=== PATIENT | female | born 1940 | race Caucasian/White ===

== ENCOUNTER 2018-11-13 13:37 | Emergency (ER) | payer MEDICARE ==
[2018-11-13 14:03] VITALS: BP 140/66
--- NOTE | 2018-11-13 14:38 | UC ---
Respiratory Complaint HPI - HPI Summary HPI Summary: 77 y/o female presents to the urgent care c/o productive cough w/ chest congestion, sinus pressure, ROWELL, body aches for the past 8 days. Pt returned form [place] on 10/31 and she forgot to wear a mask in the plane and 3 days later she started w/ sinus congestion and yellowish discharge. She has been w/ fever on and off for the past 2 days. Temp Max: 102F yesterday. She has been taken Tylenol PO to alleviate symptoms. Last dose taken was around 1300pm today. She had mild wheezing last night. Pt denies dizziness, SOB, chest pain, abdominal pain, N/V/D - History of Current Complaint Chief Complaint: UCGeneralIllness Stated Complaint: CONJESTION/FEVER Time Seen by Provider: 11/13/18 14:25 Hx Obtained From: Patient ?: No Onset/Duration: Gradual Onset, Lasting Days - 9 days, Still Present, Worse Since - 2 days w/ fever and mild wheezing Timing: Intermittent Episodes Severity Initially: Mild Severity Currently: Moderate Pain Intensity: 5 - sore throat Character: Cough: Productive, Sputum Description: - yellowihs Alleviating Factors: OTC Meds Associated Signs And Symptoms: Positive: Fever, Chills, Wheezing - mild, URI, Nasal Congestion - yellowish, Sinus Discomfort - Risk Factors Pulmonary Embolism Risk Factors: Negative Cardiac Risk Factors: Negative Pseudomonas Risk Factors: Negative Tuberculosis Risk Factors: Negative - Allergies/Home Medications Allergies/Adverse Reactions: Allergies Allergy/AdvReac Type Severity Reaction Status Date / Time [facility] Allergy Intermediate Swelling Verified 11/13/18 14:03 fentanyl Allergy Intermediate Nausea And Verified 11/13/18 14:03 Vomiting lisinopril Allergy Intermediate Coughing Verified 11/13/18 14:03 codeine Allergy Mild Itching Verified 11/13/18 14:03 Home Medications: Home Medications Amitriptyline HCl 75 mg PO DAILY WITH MEAL 11/13/18 [History Confirmed 11/13/18] Biotin/Keratin [Biotin Plus Keratin Tablet] 1 each PO DAILY WITH MEAL 11/13/18 [ History Confirmed 11/13/18] Lactobacillus Acidophilus [Probiotic Acidophilus] 1 each PO DAILY WITH MEAL [History Confirmed 11/13/18] Losartan Potassium [Cozaar] 50 mg PO DAILY 11/13/18 [History Confirmed 11/13/18] Multivit-Min/Iron/Folic/Lutein [Centrum Silver Women Tablet] 1 mg PO DAILY WITH MEAL 11/13/18 [History Confirmed 11/13/18] Turmeric 400 mg PO DAILY WITH MEAL 11/13/18 [History Confirmed 11/13/18] hydroCHLOROthiazide [Hydrochlorothiazide] 12.5 mg PO DAILY WITH MEAL 11/13/18 [ History Confirmed 11/13/18] traZODone TAB* [Desyrel TAB*] 100 mg PO BEDTIME 11/13/18 [History Confirmed ] PMH/Surg Hx/FS Hx/Imm Hx Previously Healthy: Yes Endocrine History: Dyslipidemia Cardiovascular History: Hypertension Other GI/ History: chronic lower back, DDD - Surgical History Surgical History: Yes Surgery Procedure, Year, and Place: 2 hernia surgury,rt and lt bunionectomys, tubal ligation, cataracts, tonsils, lower back surgery 1999,rt [place] - Family History Known Family History: Positive: Hypertension - Social History Occupation: Retired Lives: With Family Alcohol Use: Weekly Alcohol Amount: one glass of wine Substance Use Type: Prescribed Substance Use Comment - Amount & Last Used: Oxycodone Smoking Status (MU): Never Smoked Tobacco - Immunization History Most Recent Influenza Vaccination: 06/04/10 Most Recent Tetanus Shot: 2005 Most Recent Pneumonia Vaccination: 1999 Review of Systems All Other Systems Reviewed And Are Negative: Yes Constitutional: Positive: Fever, Chills, Fatigue Skin: Positive: Negative Eyes: Positive: Negative ENT: Positive: Sore Throat, Nasal Discharge - yellowish, Sinus Congestion, Sinus Pain/Tenderness, Other - PND Respiratory: Positive: Cough - productive cough w/ yellowish phlegm, Other - mild wheezing Cardiovascular: Positive: Negative Gastrointestinal: Positive: Negative Genitourinary: Positive: Negative Motor: Positive: Negative Neurovascular: Positive: Negative Musculoskeletal: Positive: Negative Neurological: Positive: Headache Psychological: Positive: Negative Is Patient Immunocompromised?: No Physical Exam - Summary Physical Exam Summary: Vital Signs Reviewed: Yes General: well developed, well nourished female sitting in the examining table w/ o any apparent distress Eyes: Positive: Conjunctiva Clear - PERRLA, EOMI, fundi grossly normal ENT: Positive: Normal ENT inspection, Hearing grossly normal, Pharynx normal, Nasal congestion - edematous and erythematous nasal mucosa, Nasal drainage - yellowish drainage, TMs normal. Negative: Tonsillar swelling, Tonsillar exudate Neck: Positive: Supple, Nontender, No Lymphadenopathy Respiratory: no orthopnea or dyspnea. Able to speak in full sentences, no retractions or accessory muscle use, no tripod position, stridor, or head bobbing. Positive breath sounds bilaterally. diffuse scattered rhonchi and mild RT posterior upper lung w/ mild wheezing, no crackles or rales. Cardiovascular: Positive: RRR, No Murmur, Pulses Normal, Brisk Capillary Refill Abdomen Description: Positive: Nontender, No Organomegaly, Soft. Negative: CVA Tenderness (R), CVA Tenderness (L) Bowel Sounds: Positive: Present Musculoskeletal Exam: Normal Musculoskeletal: Positive: Strength Intact, ROM Intact, No Edema Neurological Exam: Normal Psychological Exam: Normal Skin Exam: Normal Triage Information Reviewed: Yes Vital Signs: Initial Vital Signs Temp 99.4 F 11/13/18 13:58 Pulse 104 11/13/18 13:58 Resp 20 11/13/18 13:58 BP 140/66 11/13/18 13:58 Pulse Ox 97 11/13/18 13:58 Respiratory Course/Dx - Course Course Of Treatment: 77 y/o female presents to the urgent care c/o productive cough w/ chest congestion, sinus pressure, ROWELL, body aches for the past 8 days. [place] returned form [place] on 10/31 and she forgot to wear a mask in the plane and 3 days later she started w/ sinus congestion and yellowish discharge. She has been w/ fever on and off for the past 2 days. Temp Max: 102F yesterday. She has been taken Tylenol PO to alleviate symptoms. Last dose taken was around 1300pm today. She had mild wheezing last night. Pt denies dizziness, SOB, chest pain, abdominal pain, N/V/D. Hx obtained. .PT is hemodynamically stable, w/ diffuse scattered rhonchi and mild RT posterior upper lung w/ mild wheezing, no crackles or rales on examination. O2Sat: 97%.. Chest X-ray ordered: impression: Hyperinflation consistent w/ COPD, no acute cardiopulmonary disease observed as per radiologist. Duoneb treatment ordered and given by nurse. Pt tolerated well medications and her lungs improved. Pt states feeling better. Pt will be Tx for Acute Bronchitis, Rx Doxycycline PO , Albuterol Inhaler and Tessalon tabs as directed below. Strongly advised to f/u with her PCP for further management. She may be developing COPD. She also has elevated BP today, advised to decrease salt in her diet and monitor BP, if it continues to be elevated to f/u with her PCP. Pt understood and agreed with D/C instructions and left the clinic hemodynamically stable. - Differential Dx/Diagnosis Differential Diagnosis/HQI/PQRI: Asthma, Bronchitis, Influenza, Lower Resp Infection, Sinusitis, Other - pneumonia, pharyngitis Provider Diagnosis: Acute bronchitis, Wheezing, Uncontrolled hypertension Discharge - Sign-Out/Discharge Documenting (check all that apply): Patient Departure - D/C home All imaging exams completed and their final reports reviewed: Yes - Discharge Plan Condition: Stable Disposition: HOME Prescriptions: Albuterol HFA INHALER* [Ventolin HFA Inhaler*] 1 - 2 puff INH Q6H PRN #1 mdi PRN Reason: Wheezing Benzonatate CAP* [Tessalon 100 MG CAP*] 100 mg PO TID PRN #21 cap PRN Reason: Cough DOXYcycline CAP(*) [DOXYcycline 100MG CAP(*)] 100 mg PO BID #20 cap Patient Education Materials: Acute Bronchitis (ED) Referrals: Rosalva Lockhart MD [Primary Care Provider] - 3 Days Additional Instructions: 1-Please take full course of antibiotic to avoid resistance. Take yogurt w/ probiotics or Culturelle to protect your GI system. Please take antibiotic 2hrs before or after you take your Multivitamins sicne it can cause delay in its absorption 2-Take Tessalon PO tabs as directed and use the albuterol inhaler w/ aerochamber to alleviate cough. Increase fluid intake, rest and eat well. 3- If symptoms do not improve or worsen or your develop SOB with fever and severe wheezing please go immediately to the ER further evaluation and treatment. 4- F/u with your PCP in 3 days if not improvement of symptoms for further management. 5-Your BP is elevated today. please decrease salt in your diet, monitor BP and if it continues to be elevated please f/u with your PCP for further management. - Billing Disposition and Condition Condition: STABLE Disposition: Home
[2018-11-13] MEDS ORDERED: Albuterol/Ipratropium NEB.SOL* Albuterol 2.5 MG/Ipratropium 0.5 MG 3 ML INH ONE (14:50)
== END 2018-11-13 16:03 | disposition home or self-care (01) ==
LOC: UCEAST 13:37
DX: J20.9 Acute bronchitis, unspecified (principal); R06.2 Wheezing; I10 Essential (primary) hypertension; E78.5 Hyperlipidemia, unspecified; G89.29 Other chronic pain; M54.5 Low back pain; M51.36 Other intervertebral disc degeneration, lumbar region; Z88.5 Allergy status to narcotic agent; Z88.8 Allergy status to other drugs, medicaments and biological substances
CPT/HCPCS: 71046; 87651; 99212; A9270-GY; G0463

== ENCOUNTER 2019-03-04 14:34 | Emergency (ER) | payer MEDICARE ==
--- NOTE | 2019-03-04 15:43 | UC ---
General HPI - HPI Summary HPI Summary: 78-year-old woman comes in with a chief complaint of injuries sustained during a fall last evening. She tripped and fell down several steps. She's struck her right cheondoism and also had an outstretched right arm and has right arm pain and struck her right knee and his right knee pain. Patient is not on blood thinners. She was nauseous for about 45 minutes after the fall but did not throw up. No change in vision. Of difficulty with speech. No weakness or numbness. At this time the patient has no headache. She does have some neck pain that is mostly on the sides. To about a 5 out of 10 it's worse with movement. She has hematoma on the anterior aspect of the right wrist. She has pain in the right shoulder and right humerus. She describes the right wrist pain is minimal. Her worst pain is at the right shoulder and right humerus which is worse with range of motion. Also her right knee has an abrasion on it and it swollen and it hurts to try to bend. She can bear weight. It does not feel unstable to exam. - History of Current Complaint Chief Complaint: UCTrauma Stated Complaint: R SHOULDER INJURY Time Seen by Provider: 03/04/19 15:17 Hx Last Menstrual Period: post Pain Intensity: 8 - Allergy/Home Medications Allergies/Adverse Reactions: Allergies Allergy/AdvReac Type Severity Reaction Status Date / Time am[facility] [[facility]] Allergy Intermediate Swelling Verified 03/04/19 15:03 fentanyl Allergy Intermediate Nausea And Verified 03/04/19 15:03 Vomiting lisinopril Allergy Intermediate Coughing Verified 03/04/19 15:03 codeine Allergy Mild Itching Verified 03/04/19 15:03 PMH/Surg Hx/FS Hx/Imm Hx Previously Healthy: Yes Cardiovascular History: Hypertension Respiratory History: Asthma GI/ History: Gastroesophageal Reflux - Surgical History Surgical History: Yes Surgery Procedure, Year, and Place: 2 hernia surgury,rt and lt bunionectomys, tubal ligation, cataracts, tonsils, lower back surgery 1999,rt [place] - Family History Known Family History: Positive: Hypertension - Social History Alcohol Use: Weekly Alcohol Amount: one glass of wine Substance Use Type: Prescribed Substance Use Comment - Amount & Last Used: Oxycodone Smoking Status (MU): Never Smoked Tobacco - Immunization History Most Recent Influenza Vaccination: 06/04/10 Most Recent Tetanus Shot: 2005 Most Recent Pneumonia Vaccination: 1999 Review of Systems All Other Systems Reviewed And Are Negative: Yes Constitutional: Positive: Negative Skin: Positive: Other - see hpi Eyes: Positive: Negative ENT: Positive: Negative Respiratory: Positive: Negative Cardiovascular: Positive: Negative Gastrointestinal: Positive: Nausea - see hpi Motor: Positive: Decreased ROM Neurovascular: Positive: Negative Musculoskeletal: Positive: Other: - see hpi Neurological: Positive: Negative Psychological: Positive: Negative Is Patient Immunocompromised?: No Physical Exam Triage Information Reviewed: Yes Appearance: Well-Appearing, Well-Nourished, Pain Distress - mild with rom Vital Signs: Initial Vital Signs Temp 98.3 F 03/04/19 14:55 Pulse 77 03/04/19 14:55 Resp 16 03/04/19 14:55 BP 143/58 03/04/19 14:55 Pulse Ox 96 03/04/19 14:55 Vital Signs Reviewed: Yes Eye Exam: Normal Eyes: Positive: Conjunctiva Clear, Other: - PERRLA EOMI and no photophobia ENT: Positive: TMs normal - No hemotympanum Neck: Positive: Supple, Other: - Mild tenderness to palpation in the posterior aspect of the lateral aspects minimal tenderness of the midline posterior spinous processes. Respiratory: Positive: Chest non-tender, Lungs clear, Normal breath sounds, No respiratory distress Musculoskeletal: Positive: Strength Intact, Other: - Tender to palpation of the right shoulder joint and down into the right humerus. The fingers hands wrists and elbows are nontender to palpation and have full range of motion and full strength. Bilateral shoulder extension and abduction is 90. The right knee is scattered effusion there is an abrasion on it. Limited range of motion secondary to the effusion. It's stable to exam. Neurological: Positive: Alert Psychological: Positive: Age Appropriate Behavior Skin: Positive: Other - 2 cm diameter abrasion on the right knee. There is a 4 cm diameter ecchymosis on the right anterior wrist. Course/Dx - Course Course Of Treatment: Instrument Repairer: Joanna Delgadillo S ([id number]) Dental Internship: LINDA (LINDA) Report Date: 03/04/2019 15:35:00 Report Status: Final Start of Report Content Patient Name: COLT DELACRUZ Medical Record#: [id number] Ordering Physician: Landon Waters MD Acct.#: [id number] : Age: 78 Sex: F Location: [facility] Exam Date: 03/04/19 1535 ADM Status: REG ER Order Information: SHOULDER RIGHT 2+ VWS Accession Number: [id number] CPT: 48835 Indication: Right shoulder injury. 4 views of the right shoulder demonstrates AC joint arthritis. No fracture is noted. IMPRESSION: AC joint arthritis with no evidence of fracture. <Electronically signed by Joanna Delgadillo MD in OV> 03/04/191634 Dictated By: Joanna Delgadillo MD Dictated Date/Time: 1633 Transcribed Date/Time: 03/04/191633 Copy to: CC:Rosalva Lockhart MD; Landon Waters MD Imaging - [facility] Imaging - [facility] [address] [place] [address] ph [phone]) ph [phone]) ph ([phone]) End of Report Content Instrument Repairer: Joanna Delgadillo S, ([id number]) Dental Internship: LINDA (NUANCE) Report Date: 03/04/2019 15:35:00 Report Status: Final Start of Report Content Patient Name: COLT DELACRUZ Medical Record#: [id number] Ordering Physician: Landon Waters MD Acct.#: [id number] : Age: 78 Sex: F Location: [facility] Exam Date: 03/04/19 1535 ADM Status: REG ER Order Information: KNEE RIGHT 4+ VWS Accession Number: [id number] CPT: 58809 Indication: Right ankle pain. 4 views of the right knee demonstrates no fracture. No joint effusion is noted. No other bone or joint abnormality is identified. IMPRESSION: No fracture of the right knee is noted. _ <Electronically signed by Joanna Delgadillo MD in OV> 03/04/191634 Dictated By: Joanna Delgadillo MD Dictated Date/Time: 03/04/191634 Transcribed Date/Time: 03/04/191634 Copy to: CC:Rosalva Lockhart MD; Landon Waters MD Imaging - [facility] Imaging - [facility] [address] [address] ph [phone]) ph ([phone]) ph ([phone]) End of Report Content Instrument Repairer: Joanna Delgadillo S, ([id number]) Dental Internship: LINDA, (NUANCE) Report Date: 03/04/2019 15:35:00 Report Status: Final Start of Report Content Patient Name: COLT DELACRUZ Medical Record#: [id number] Ordering Physician: Landon Waters MD Acct.#: [id number] : Age: 78 Sex: F Location: [facility] Exam Date: 03/04/191534 ADM Status: REG ER Order Information: HUMERUS RIGHT Accession Number: [id number] CPT: 40882 Indication: Right arm injury. 2 views of the right arm demonstrates no fracture. No other bone or joint abnormality is identified. IMPRESSION: No fracture of the right arm is noted. <Electronically signed by Joanna Delgadillo MD in OV> 03/04/191635 Dictated By: Joanna Delgadillo MD Dictated Date/Time: 03/04/191634 Transcribed Date/Time: 03/04/191634 Copy to: CC:Rosalva Lockhart MD; Landon Waters MD Imaging - [facility] Imaging [facility] [address], [place] [id number] [place] [address] [place] [address] ph [phone] ph ) ph ([phone]) End of Report Content Instrument Repairer: Joanna Delgadillo S, ([id number]) Dental Internship: LINDA, (NUANCE) Report Date: 03/04/2019 15:35:00 Report Status: Final Start of Report Content Patient Name: COLT DELACRUZ Medical Record#: [id number] Ordering Physician: Landon Waters MD Acct.#: [id number] : Age: 78 Sex: F Location: [facility] Exam Date: 03/04/19 1535 ADM Status: REG ER Order Information: SP CERVICAL 4+VWS Accession Number: [id number] CPT: 32615 Indication: Neck injury. 5 views of the cervical spine demonstrates kyphosis at C4-C5. Degenerative disc disease at C5-C6 and C6-C7 is noted. Spinal canal appears to be intact. Intervertebral foramen appears patent. 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 Degenerative disc disease at C4 -C5, C5-C6 and C6-C7. __ <Electronically signed by Joanna Delgadillo MD in OV> 03/04/191635 Dictated By: Joanna Delgadillo MD Dictated Date/Time: 03/04/191635 Transcribed Date/Time: 1635 Copy to: CC:Rosalva Lockhart MD; Landon Waters MD Imaging - [facility] Imaging - [facility] Imaging - [facility] [address] [address] ph [phone]) ph ([phone]) ph ([phone]) ===== End of Report Content I discussed the x-rays with the patient and her . At this time the plan is to continue her ibuprofen and acetaminophen as needed for pain. She can ice the right shoulder if needed and helpful and also the right knee if help full. Patient will follow-up with orthopedics for both of these injuries. Here today in clinic we do not have head CT. I discussed with the patient and the criteria for head CT after injury. Patient had no vomiting no weakness or numbness no vision changes no neurologic deficit. She is not on blood thinners. I discussed if they had any concerns that she go to the emergency department now for head CT which they declined. I did let them know that if she worsened at all with a headache weakness numbness or any other concerns they need to the emergency department for further evaluation. - Diagnoses Provider Diagnosis: Head injury, Cervical strain, Right shoulder pain, Pain of right humerus, Injury of right knee Discharge ED - Sign-Out/Discharge Documenting (check all that apply): Patient Departure All imaging exams completed and their final reports reviewed: Yes - Discharge Plan Condition: Stable Disposition: HOME Patient Education Materials: Cervical Strain (ED), Head Injury (ED), Swollen Knee Joint (ED), Knee Pain (ED), Shoulder Pain (ED) Referrals: Rosalva Lockhart MD [Primary Care Provider] - Sully Meza MD [Medical Doctor] - Additional Instructions: FOLLOW UP WITH ORTHOPEDICS FOR YOUR RIGHT SHOULDER AND KNEE INJURIES. GO TO THE EMERGENCY DEPARTMENT IF YOUR CONDITION WORSENS; HEADACHES, WEAKNESS, NUMBNESS, CONFUSION, UNEXPLAINED VOMITING, YOU FEEL ILL OR ANY QUESTIONS OR CONCERNS. - Billing Disposition and Condition Condition: STABLE Disposition: Home
[2019-03-04 17:29] VITALS: BP 144/73
== END 2019-03-04 17:18 | disposition home or self-care (01) ==
LOC: UCEAST 14:34
DX: S09.90XA Unspecified injury of head, initial encounter (principal); S16.1XXA Strain of muscle, fascia and tendon at neck level, initial encounter; M25.511 Pain in right shoulder; M79.621 Pain in right upper arm; S89.91XA Unspecified injury of right lower leg, initial encounter; W10.9XXA Fall (on) (from) unspecified stairs and steps, initial encounter; Y93.9 Activity, unspecified; Y92.9 Unspecified place or not applicable; I10 Essential (primary) hypertension
CPT/HCPCS: 72050; 99212; G0463

== ENCOUNTER 2024-03-17 12:49 | Inpatient (IN) ==
[2024-03-17] MEDS ORDERED: Ondansetron 4 mg VIAL 2 MG/ML 2 ml VIAL ONE ×2 (13:20→19:51)
[2024-03-17] MEDS: Ondansetron 4 mg VIAL 2 MG/ML 2 ml VIAL IV ONE ×3 (13:29→15:20)
[2024-03-17] MEDS: Lactated Ringers 1000 ml BAG 1,000 ML IV ONE ×2 (13:41→16:24)
[2024-03-17] MEDS: ACETAMINOPHEN IV ONE (13:41)
[2024-03-17 13:48] LABS: ABS Basophils 0.1 10^3/uL (0.0-0.1); ABS Lymphocytes 3.4 10^3/uL (1.0-4.8); ABS Neutrophils 3.7 10^3/uL (1.5-7.6); Eosinophil % 0.1 %; Hematocrit 36.6 % (35-45); Hemoglobin 12.5 g/dL (11.5-14.3); Mean Corpuscular Hemoglobin 31.7 pg (27-33); Mean Corpuscular Hgb Conc 34.2 g/dL (31-36); Mean Corpuscular Volume 92.7 fL (80-97); Mean Platelet Volume 8.4 fL (7.5-11.2); Platelet Count 216 10^3/uL (150-450); Red Blood Count 3.95 10^6/uL (3.63-4.92); Red Cell Distribution Width 13.5 % (12-17); White Blood Count 8.2 10^3/uL (3.8-11.8)
[2024-03-17 14:03] LABS: INR 1.01 (0.85-1.14)
[2024-03-17 14:35] LABS: Albumin 4.4 g/dL (3.2-5.2); Albumin/Globulin Ratio 1.8 (1-3); C Reactive Protein 1.24 mg/L (<8.01); Creatinine, Serum 0.68 mg/dL (0.51-0.95); Globulin 2.5 g/dL (2-4); Potassium 3.7 mmol/L (3.5-5.0); Total Bilirubin 0.5 mg/dL (0.2-1.0); Total Protein 6.9 g/dL (6.4-8.9); eGFR CKD-EPI 85.3 (>60)
[2024-03-17] MEDS: fentaNYL 100 mcg/2 ml 50 MCG/ML VIAL IV SLOW PU ONE ×3 (15:20→17:28)
[2024-03-17] MEDS: Iodixanol (CONTRAST) 320 MG/ML 100 ML SDV IV ONE (15:57)
[2024-03-17] MEDS: Prochlorperazine 5 mg/ml 2 ml VIAL (10 mg) IV ONE (17:27)
[2024-03-17] MEDS ORDERED: Bupivacaine 0.25% w/EPI 10 ML SDV ONE (17:48)
[2024-03-17] MEDS ORDERED: Ondansetron 4 mg VIAL 2 MG/ML 2 ml VIAL IV PRN (17:54)
[2024-03-17] MEDS ORDERED: Naloxone 0.4 mg VIAL 0.4 mg/ml 1 ml VIAL IV PRN (17:54)
[2024-03-17] MEDS ORDERED: Metoclopramide 5 MG/ML VIAL (10 mg) IV PRN (17:54)
[2024-03-17] MEDS ORDERED: NS 0.45% 1000 ml BAG 1,000 ML IV SCH (18:00)
[2024-03-17] MEDS ORDERED: Propofol 10 MG/ML 20 ML BTL ONE (18:03)
[2024-03-17] MEDS ORDERED: Lidocaine 2% PF 10 ML AMP (OR) ONE (18:03)
[2024-03-17] MEDS ORDERED: HYDROmorphone 0.5 MG/0.5 ML SYRINGE ONE (18:04)
[2024-03-17] MEDS ORDERED: Rocuronium 50 mg VIAL 10 mg/ml 5 ml VIAL (50 mg) ONE (18:34)
[2024-03-17] MEDS ORDERED: Dexamethasone IV 4 MG/ML VIAL 1 ml VIAL ONE (19:51)
[2024-03-17] MEDS ORDERED: HYDROmorphone 1 MG/1 ML SYRINGE ONE (20:26)
[2024-03-17] MEDS ORDERED: Acetaminophen IV 1 GM/100ML 1,000 MG/100 ML BAG IV ONE (20:26)
[2024-03-17] MEDS: HYDROmorphone 0.5 MG/0.5 ML SYRINGE IV PRN (20:30)
[2024-03-17] MEDS: Acetaminophen IV 1 GM/100ML 1,000 MG/100 ML BAG IV ONE (20:33)
[2024-03-17] MEDS: Lactated Ringers 1000 ml BAG 1,000 ML IV SCH (21:30)
[2024-03-18] MEDS: HYDROmorphone 0.5 MG/0.5 ML SYRINGE IV SLOW PU PRN (01:23)
[2024-03-18] MEDS: Piperacillin/Tazobac 3.375 BAG 3.375 GM/100 ML BAG IV ONE (07:23)
[2024-03-18] MEDS: Lactated Ringers 1000 ml BAG 1,000 ML IV SCH (07:24)
[2024-03-18] MEDS: Buffered Lidocaine 1% SYRIN 1 ml INTRADERM ONE (07:24)
[2024-03-18] MEDS: Scopolamine 1 mg/72hr PATCH TRANSDERM ONE (07:24)
[2024-03-18 08:19] LABS: Hematocrit 35.9 % (35-45); Mean Corpuscular Hemoglobin 31.1 pg (27-33); Mean Corpuscular Hgb Conc 33.3 g/dL (31-36); Mean Corpuscular Volume 93.3 fL (80-97); Mean Platelet Volume 8.2 fL (7.5-11.2); Platelet Count 152 10^3/uL (150-450); Red Blood Count 3.85 10^6/uL (3.63-4.92); Red Cell Distribution Width 13.8 % (12-17); White Blood Count 28.9 10^3/uL (3.8-11.8)
[2024-03-18 08:49] LABS: Calcium 8.6 mg/dL (8.6-10.3); Creatinine, Serum 0.6 mg/dL (0.51-0.95); Potassium 4.1 mmol/L (3.5-5.0); eGFR CKD-EPI 87.9 (>60)
[2024-03-18 09:35] LABS: ABS Basophils 0.1 10^3/uL (0.0-0.1); ABS Lymphocytes 0.6 10^3/uL (1.0-4.8); ABS Monocytes 1.9 10^3/uL (0.0-0.9); ABS Neutrophils 26.3 10^3/uL (1.5-7.6); ABS Nucleated RBC 0.01 10^3/ul
[2024-03-18 09:36] LABS: RBC Morphology Normal (Normal)
[2024-03-18 10:45] LABS: Hematocrit 32.8 % (35-45); Hemoglobin 11.1 g/dL (11.5-14.3); Mean Corpuscular Hemoglobin 31.4 pg (27-33); Mean Corpuscular Hgb Conc 33.8 g/dL (31-36); Mean Corpuscular Volume 92.8 fL (80-97); Mean Platelet Volume 8.3 fL (7.5-11.2); Platelet Count 156 10^3/uL (150-450); Red Blood Count 3.53 10^6/uL (3.63-4.92); Red Cell Distribution Width 13.6 % (12-17); White Blood Count 24.5 10^3/uL (3.8-11.8)
[2024-03-18 10:59] LABS: ABS Basophils 0.1 10^3/uL (0.0-0.1); ABS Lymphocytes 0.9 10^3/uL (1.0-4.8); ABS Neutrophils 21.5 10^3/uL (1.5-7.6); Lymphocyte % 3.5 %
[2024-03-18 11:04] LABS: Activated Partial Thrombo Time 29.1 seconds (26.0-38.0); INR 1.13 (0.85-1.14)
[2024-03-18] MEDS: Heparin 5000 UNITS/ML 1 mL VIAL SUBCUT SCH (11:34)
[2024-03-18] MEDS: Pantoprazole VIAL 40 MG VIAL IV SCH (11:34)
[2024-03-19 06:33] LABS: ABS Basophils 0.1 10^3/uL (0.0-0.1); ABS Monocytes 0.9 10^3/uL (0.0-0.9); Hematocrit 31.1 % (35-45); Hemoglobin 10.7 g/dL (11.5-14.3); Lymphocyte % 8.9 %; Mean Corpuscular Hemoglobin 32.1 pg (27-33); Mean Corpuscular Hgb Conc 34.5 g/dL (31-36); Mean Corpuscular Volume 92.9 fL (80-97); Mean Platelet Volume 8.2 fL (7.5-11.2); Platelet Count 122 10^3/uL (150-450); Red Blood Count 3.35 10^6/uL (3.63-4.92); Red Cell Distribution Width 13.7 % (12-17); White Blood Count 10.9 10^3/uL (3.8-11.8)
[2024-03-19 06:52] LABS: Calcium 8.4 mg/dL (8.6-10.3); Creatinine, Serum 0.52 mg/dL (0.51-0.95); Potassium 3.8 mmol/L (3.5-5.0)
[2024-03-19] MEDS: Ondansetron 4 mg VIAL 2 MG/ML 2 ml VIAL IV PRN (08:18)
[2024-03-19] MEDS: Lactated Ringers 1000 ml BAG 1,000 ML IV SCH (10:34)
[2024-03-20 09:31] LABS: Calcium 8.7 mg/dL (8.6-10.3); Creatinine, Serum 0.46 mg/dL (0.51-0.95); Potassium 3.5 mmol/L (3.5-5.0); eGFR CKD-EPI 93.7 (>60)
[2024-03-20] MEDS: Potassium Chlor 20 meq TAB.ER PO SCH (10:54)
[2024-03-21 05:21] LABS: ABS Lymphocytes 0.8 10^3/uL (1.0-4.8); ABS Monocytes 0.6 10^3/uL (0.0-0.9); ABS Neutrophils 4.9 10^3/uL (1.5-7.6); Eosinophil % 0.1 %; Hematocrit 32.2 % (35-45); Hemoglobin 11.3 g/dL (11.5-14.3); Lymphocyte % 12.9 %; Mean Corpuscular Hemoglobin 32.1 pg (27-33); Mean Corpuscular Volume 91.7 fL (80-97); Mean Platelet Volume 8.5 fL (7.5-11.2); Nucleated Red Blood Cells % 0.1 %/100WBC (0.0-0.8); Platelet Count 158 10^3/uL (150-450); Red Blood Count 3.51 10^6/uL (3.63-4.92); Red Cell Distribution Width 13.3 % (12-17); White Blood Count 6.3 10^3/uL (3.8-11.8)
[2024-03-21 14:18] VITALS: BP 155/56
== END 2024-03-21 15:30 | disposition home or self-care (01) | DRG 331 ==
LOC: ED 12:49 → EDHOLD 17:54 → AA 18:04 → SSU 21:41
PROVIDERS: ADMIT Surgery; ATTEND Surgery